=== PATIENT | female | born 1995 ===

== ENCOUNTER 2023-06-26 06:50 | Outpatient (CLI) | payer SELFPAY | END 2023-06-27 12:15 | disposition home or self-care (01) | LOC: PREOP 06:50 | PROVIDERS: ATTEND Obstetrics & Gynecology | DX: Z01.818 Encounter for other preprocedural examination (principal) ==

== ENCOUNTER 2023-06-27 10:44 | Inpatient (IN) | payer SELFPAY ==
[2023-06-27] VITALS (10 sets, daily range): BP systolic 96–124; BP diastolic 53–104
[~2023-06-27] VITALS: Ht 148 cm; Wt 63.2 kg
[2023-06-27 11:21] LABS: BILIRUBIN,URINE 1+ (NEGATIVE); CLARITY,URINE CLEAR; COLOR,URINE YELLOW; GLUCOSE, URINE (UA) NEGATIVE (NEGATIVE); KETONES,URINE 1+ (NEGATIVE); LEUKOCYTE ESTERASE ,URINE NEGATIVE (NEGATIVE); NITRITE,URINE NEGATIVE (NEGATIVE); PROTEIN,URINE TRACE (NEGATIVE); WBC,URINE 0-2 /HPF
[2023-06-27 11:22] LABS: AMORPHOUS SEDIMENT,UR RARE AMOR URATES /LPF; BACTERIA,URINE TRACE /HPF
[2023-06-27] MEDS ORDERED: ceFAZolin INJECTION 2,000 MG in NS (IVPB) 50 ML 50 ML IV ONE (12:00)
[2023-06-27] MEDS ORDERED: AZITHROMYCIN INJECTION 500 MG in NS (IVPB) 250 ML 250 ML IV ONE (12:00)
[2023-06-27 12:08] LABS: BASOPHILS % (AUTO) 0 % (0-10); EOSINOPHILS % (AUTO) 0 % (0-10); HEMATOCRIT 38 % (35-52); HEMOGLOBIN 12.7 g/dL (11.5-16.0); LYMPHOCYTES # (AUTO) 1.4 10^3/uL (1.0-4.0); LYMPHOCYTES % (AUTO) 15 % (12-44); MEAN CORPUSCULAR HEMOGLOBIN 28 pg (25-34); MEAN CORPUSCULAR HGB CONC 33 g/dL (32-36); MEAN CORPUSCULAR VOLUME 84 fL (80-99); MEAN PLATELET VOLUME 11.1 fL (9.0-12.2); MONOCYTES # (AUTO) 0.4 10^3/uL (0.0-1.0); MONOCYTES % (AUTO) 4 % (0-12); NEUTROPHILS # (AUTO) 7.6 10^3/uL (1.8-7.8); NEUTROPHILS % (AUTO) 80 % (42-75); PLATELET COUNT 359 10^3/uL (130-400); WHITE BLOOD COUNT 9.4 10^3/uL (4.3-11.0)
[2023-06-27] MEDS ORDERED: CATHETER FLUSH 10 ML SYR IV PRN (12:15)
[2023-06-27] MEDS ORDERED: BUTORPHANOL INJ 2 MG/ML VIAL IV ONE (12:15)
[2023-06-27] MEDS ORDERED: CITRIC ACID/SODIUM CITRATE ORAL SOLN 30 ML PO ONE (12:15)
[2023-06-27] MEDS ORDERED: FAMOTIDINE INJ 20MG/2ML VIAL IV ONE (12:15)
[2023-06-27] MEDS ORDERED: METOCLOPRAMIDE INJ 10 MG/2 ML IV ONE (12:15)
[2023-06-27] MEDS ORDERED: LACTATED RINGERS 1,000 ML 1,000 ML IV PRN (12:15)
[2023-06-27] MEDS ORDERED: METOCLOPRAMIDE INJ 10 MG/2 ML ONE (12:20)
[2023-06-27] MEDS ORDERED: BUTORPHANOL INJ 2 MG/ML VIAL ONE (12:21)
--- NOTE | 2023-06-27 12:34 | History & Physical-OB ---
OB - Chief Complaint & HPI Date/Time Date of Admission: Date of Admission: Jun 27, 2023 at 11:25 Date seen by a Provider: Jun 27, 2023 Time Seen by a Provider: 12:00 Chief Complaint/History OB-Reason for Admission/Chief: Rupture of Membranes Hx : 2 Hx Para: 1 Gestational Age in Weeks: 38 Gestational Age in Days: 4 Indication for : desires repeat Allergies and Home Medications Allergies Coded Allergies: No Known Drug Allergies (Unverified , 06/27/23) Patient Home Medication List Home Medication List Reviewed: Yes OB - History Hx of Present Care: Yes ( care in [facility]. Moved here in April and seen here last month.) Delivery History Hx Section: Yes Patient Past Medical History Neg Social History/Family History Alcohol Use: Denies Use Recreational Drug Use: No OB - Admission Exam Physical Exam HEENT: NCAT Heart: Rhythm Normal Lungs: Clear Abdomen: Gravid Extremities: Normal Reflexes: Normal Cervical Dilatation: 4cm Effacement: Other (80%) Station: -3 Membranes: Ruptured Amniotic Fluid: Clear Heart Rate: 120's Accelerations: Accelerations Present Decelerations: No Decelerations Short Term Variability: Present Skilled Nursing Variability: Average (6-25) Contractions on Admission: < 5 Minutes Apart Frequency of Contractions: Q2-4min Intensity: Moderate Labs Laboratory Tests Test 06/27/23 10:55 06/27/23 11:45 Range/Units Urine Color YELLOW Urine Clarity CLEAR Urine pH 7.0 5-9 Urine Specific [place] 1.025 H 1.016-1.022 Urine Protein TRACE H NEGATIVE Urine Glucose (UA) NEGATIVE NEGATIVE Urine Ketones 1+ H NEGATIVE Urine Nitrite NEGATIVE NEGATIVE Urine Bilirubin 1+ H NEGATIVE Urine Urobilinogen 1.0 < = 1.0 MG/DL Urine Leukocyte Esterase NEGATIVE NEGATIVE Urine RBC (Auto) 1+ H NEGATIVE Urine RBC 5-10 H /HPF Urine WBC 0-2 /HPF Urine Squamous Epithelial Cells 2-5 /HPF Urine Crystals PRESENT H /LPF Urine Amorphous Sediment RARE JENNIFER URATES H /LPF Urine Bacteria TRACE /HPF Urine Casts NONE /LPF Urine Mucus SMALL H /LPF Urine Culture Indicated NO White Blood Count 9.4 4.3-11.0 10^3/uL Red Blood Count 4.52 3.80-5.11 10^6/uL Hemoglobin 12.7 11.5-16.0 g/dL Hematocrit 38 35-52 % Mean Corpuscular Volume 84 80-99 fL Mean Corpuscular Hemoglobin 28 25-34 pg Mean Corpuscular Hemoglobin Concent 33 32-36 g/dL Red Cell Distribution Width 13.5 10.0-14.5 % Platelet Count 359 130-400 10^3/uL Mean Platelet Volume 11.1 9.0-12.2 fL Immature Granulocyte % (Auto) 1 % Neutrophils (%) (Auto) 80 H 42-75 % Lymphocytes (%) (Auto) 15 12-44 % Monocytes (%) (Auto) 4 0-12 % Eosinophils (%) (Auto) 0 0-10 % Basophils (%) (Auto) 0 0-10 % Neutrophils # (Auto) 7.6 1.8-7.8 10^3/uL Lymphocytes # (Auto) 1.4 1.0-4.0 10^3/uL Monocytes # (Auto) 0.4 0.0-1.0 10^3/uL Eosinophils # (Auto) 0.0 0.0-0.3 10^3/uL Basophils # (Auto) 0.0 0.0-0.1 10^3/uL Immature Granulocyte # (Auto) 0.1 0.0-0.1 10^3/uL Syphilis Total Antibody Negative Negative OB - Assessment/Plan/Diagnosis Assessment Assessment: active labor, section (Previous C/S requesting RLTCS.), rupture of membranes Admission Dx IUP at 38w4d presents with SROM and labor. H/O prior C/S in [facility] and requesting a RLTCS. Had PNC in [facility] and moved here in April. Has been seen here 3 times. Language barrier. Admission Status: Inpatient Order (span 2 midnights) Reason for Inpatient Admission: SROM. Labor. Prior C/S requesting RLTCS. Plan Plan: Section (R/B/A d/w pt and her family member, who assisted in translating.) MOISÉS MARRERO DO Jun 27, 2023 12:34
[2023-06-27] MEDS ORDERED: fentaNYL INJECTION 100 MCG/2 ML VIAL ONE (12:49)
[2023-06-27] MEDS ORDERED: KETOROLAC INJ 30 MG/ML VIAL ONE (12:49)
[2023-06-27] MEDS ORDERED: OXYTOCIN DRIP PRE-MIX 1,000 ML IV ONE (12:49)
[2023-06-27] MEDS ORDERED: ONDANSETRON INJECTION 4 MG/2 ML (SDV) ONE (12:49)
[2023-06-27] MEDS ORDERED: BUPIVACAINE 0.25% 10 ML VIAL ONE (13:46)
[2023-06-27] MEDS ORDERED: METHYLERGONOVINE INJ 0.2 MG/ML AMP ONE (13:47)
--- NOTE | 2023-06-27 14:33 | Cesarean Section Operative ---
Procedure Procedure Note Pre-operative Diagnosis: Anesli Susan Rehabilitation Consultant is a (27 /Para 2 / 1, Gestational Age (wks)38 with [SROM, labor, prior C/S requesting RLTCS] Post-operative Diagnosis: same [as above with delivery of viable female.] Procedure: [Repeat] low transverse section Physician: MOISÉS MARRERO DO Cutting Supervisor: [Criss Marcial and Cathi Quiroz] Estimated blood loss: [500] mL Disposition: [Stable at transfer to recovery room] Findings: Viable [female] , Apgars [8/9], normal appearing uterus, tubes, and ovaries. Procedure Details: The patient was seen in pre-op and the procedure was discussed with the patient in full, including the risks, benefits, and alternatives. All questions were answered. A registered nurse supervisor service was used. The patient was taken to the operating room and a time out was performed, verifying patient and procedure. After spinal anesthesia was placed by our anesthesia colleagues, the patient was placed in the dorsal supine with leftward tilt for uterine displacement.~ Her abdomen was then prepped and draped in the typical sterile fashion. A Pf annenstiel skin incision was made using a scalpel and carried down through the underlying fascia. The fascia was incised in the midline and tented up using Donna clamps. On both the inferior and superior fascia side the rectus muscle was dissected off bluntly and sharply using Plasencia scissors. The peritoneum was identified and entered bluntly in the midline. This was then stretched laterally using manual strength. After entering the abdominal cavity and confirming lack of intraperitoneal adhesions, a bladder flap was created with the use of Metzenbaum scissors.~ A scalpel was utilized to make a low transverse uterine incision. The incision was extended bluntly. The infant's head was grasped and brought to the level of the incision. Fundal pressure was applied and was delivered without difficulty. Mouth and nares were suctioned with bulb suction. After the umbilical cord was clamped and cut, the infant was handed off to the pediatric staff. A sample of cord blood was then obtained. The placenta was delivered intact via uterine massage. The uterus was exteriorized and cleared of all clots and debris. The uterine incision was mignon sed using 0 Vicryl in a running locked fashion. A second imbricated layer was placed using 0 Vicryl in a running fashion as well. The uterus was flexed forward and the posterior rectouterine space was inspected and cleared of all clots and debris. Again the hysterotomy site was examined and hemostasis was observed. The bilateral tubes and ovaries appeared normal. The uterus was placed back into the abdominal cavity and abdominal gutters were cleared of all clots and debris. A final check of the uterine incision showed it to be hemostatic. The rectus abdominal muscles were closed using 3-0 Vicryl in a running fashion. The fascia was closed with 2.0 Stratafix suture in a running fashion. The subcutaneous space was hemostatic. The subcutaneous space was closed with 3-0 Vicryl in a running fashion. The skin was then closed using 4-0 Monocryl in a running subcuticular fashion. The skin edges were reapproximated together and were hemostatic. Steristrips were applied. All sponge, lap and needle counts were correct at the end of the procedure per nursing. Vitals - Labs Vital Signs - I&O Vital Signs Date Time Temp Pulse Resp B/P (MAP) Pulse Ox O2 Delivery O2 Flow Rate FiO2 06/27/23 12:04 36.6 65 20 124/57 (79) 06/27/23 11:00 36.5 66 20 100 Room Air 06/27/23 11:00 36.5 66 20 119/69 100 Room Air Labs Laboratory Tests 06/27/23 10:55: Urine Color YELLOW, Urine Clarity CLEAR, Urine pH 7.0, Urine Specific [place] 1.025H, Urine Protein TRACEH, Urine Glucose (UA) NEGATIVE, Urine Ketones 1+H, Urine Nitrite NEGATIVE, Urine Bilirubin 1+H, Urine Urobilinogen 1.0, Urine Leukocyte Esterase NEGATIVE, Urine RBC (Auto) 1+H, Urine RBC 5-10H, Urine WBC 0- 2, Urine Squamous Epithelial Cells 2-5, Urine Crystals PRESENTH, Urine Amorphous Sediment RARE JENNIFER URATESH, Urine Bacteria TRACE, Urine Casts NONE, Urine Mucus SMALLH, Urine Culture Indicated NO 06/27/23 11:45: White Blood Count 9.4, Red Blood Count 4.52, Hemoglobin 12.7, Hematocrit 38, Mean Corpuscular Volume 84, Mean Corpuscular Hemoglobin 28, Mean Corpuscular Hemoglobin Concent 33, Red Cell Distribution Width 13.5, Platelet Count 359, Mean Platelet Volume 11.1, Immature Granulocyte % (Auto) 1, Neutrophils (%) (Auto) 80H, Lymphocytes (%) (Auto) 15, Monocytes (%) (Auto) 4, Eosinophils (%) (Auto) 0, Basophils (%) (Auto) 0, Neutrophils # (Auto) 7.6, Lymphocytes # (Auto) 1.4, Monocytes # (Auto) 0.4, Eosinophils # (Auto) 0.0, Basophils # (Auto) 0.0, Immature Granulocyte # (Auto) 0.1, Syphilis Total Antibody Negative MOISÉS MARRERO DO Jun 27, 2023 14:33
[2023-06-27] MEDS ORDERED: Tetanus/Diphtheria/Pertussis (Acell) ADULT Vaccine 0.5 ML IM SCH (14:45)
[2023-06-27] MEDS ORDERED: MEASLES, MUMPS, RUBELLA VACCINE (MMR) SC SCH (14:45)
[2023-06-27] MEDS ORDERED: NALOXONE 0.4 MG/ML 1 ML VIAL IV PRN (14:45)
[2023-06-27] MEDS ORDERED: IBUPROFEN 800 MG TABLET PO SCH (15:00)
[2023-06-27] MEDS ORDERED: TRANEXAMIC ACID 100 MG/ML 10 ML INJECTION IV ONE (17:58)
[2023-06-27] MEDS: DOCUSATE SODIUM 100 MG CAPSULE PO SCH (21:41)
[2023-06-27] MEDS: oxyCODONE/ACETAMINOPHEN 5/325MG TABLET PO PRN (21:42)
[2023-06-27] MEDS ORDERED: CATHETER FLUSH 10 ML SYR IV SCH (22:00)
[2023-06-28] MEDS: IBUPROFEN 800 MG TABLET PO SCH ×3 (01:47→17:48)
[2023-06-28 02:04] VITALS: BP 95/61
--- NOTE | 2023-06-28 06:52 | Anesthesia-Regional Post-Op ---
Regional Patient Condition Mental Status: Alert, Oriented x3 Circulation: Same as Pre-Op Headache: Absent Sensation: Full Recovery Motor Block: Absent Post Op Complications Complications None Follow Up Care/Instructions Patient Instructions None needed. Anesthesia/Patient Condition Patient is doing well, no complaints, stable vital signs, no apparent adverse anesthesia problems. No complications reported per nursing. DIETER DUFFY CRNA Jun 28, 2023 06:52
[2023-06-28 07:25] LABS: BASOPHILS % (AUTO) 1 % (0-10); EOSINOPHILS % (AUTO) 0 % (0-10); HEMATOCRIT 27 % (35-52); HEMOGLOBIN 8.6 g/dL (11.5-16.0); LYMPHOCYTES # (AUTO) 2.1 10^3/uL (1.0-4.0); LYMPHOCYTES % (AUTO) 25 % (12-44); MEAN CORPUSCULAR HEMOGLOBIN 28 pg (25-34); MEAN CORPUSCULAR HGB CONC 32 g/dL (32-36); MEAN CORPUSCULAR VOLUME 86 fL (80-99); MEAN PLATELET VOLUME 10.9 fL (9.0-12.2); MONOCYTES # (AUTO) 0.5 10^3/uL (0.0-1.0); MONOCYTES % (AUTO) 6 % (0-12); NEUTROPHILS # (AUTO) 5.8 10^3/uL (1.8-7.8); NEUTROPHILS % (AUTO) 68 % (42-75); PLATELET COUNT 244 10^3/uL (130-400); WHITE BLOOD COUNT 8.5 10^3/uL (4.3-11.0)
[2023-06-28 08:05] VITALS: BP 98/62
--- NOTE | 2023-06-28 08:59 | Postpartum Progress Note ---
Post Op Post-operative Day #[1] Subjective: Patient is without complaints. Ambulating, voiding after reis removed. Tolerating a regular diet without nausea or vomiting. Normal lochia. Pain is well controlled with oral pain medications. [Bottle] feeding. [] Objective: Physical Exam: General - Alert and oriented, no apparent distress Abdomen - Soft, appropriately tender to palpation, non-distended, fundus firm at umbilicus Incision - clean, dry and intact; no erythema or induration, no drainage Extremities - no edema, negative Tony's bilaterally Assessment: [] post-operative day # [1], status post [RLTCS]. Recovering well, hemodynamically stable Postop anemia - asymptomatic. Plan: Routine post-operative care. Encourage ambulation. VTE prophylaxis: SCDs. Plan for discharge [tomorrow] Vitals - Labs Vital Signs - I&O Vital Signs Date Time Temp Pulse Resp B/P (MAP) Pulse Ox O2 Delivery O2 Flow Rate FiO2 06/28/23 08:05 36.5 65 18 98/62 (74) 99 Room Air 06/28/23 02:04 36.5 71 18 95/61 (72) 99 Room Air 06/27/23 22:01 36.7 75 20 96/63 (74) 98 Room Air 06/27/23 21:26 Room Air 06/27/23 18:20 37.0 83 16 114/66 (82) Room Air 06/27/23 16:20 36.5 62 16 119/58 (78) 100 Room Air 06/27/23 15:50 36.5 68 16 112/53 (72) 100 Room Air 06/27/23 15:24 Room Air 06/27/23 15:24 06/27/23 15:15 36.1 20 97/60 (72) 98 Room Air 06/27/23 15:15 Room Air 06/27/23 15:00 35.9 20 100/65 (77) 99 Room Air 06/27/23 15:00 Room Air 06/27/23 14:45 35.6 20 115/104 (108) 99 Room Air 06/27/23 14:45 Room Air 06/27/23 14:30 Room Air 06/27/23 14:30 16 99 Room Air 06/27/23 14:25 Room Air 06/27/23 14:25 36.4 16 99/53 (68) 99 Room Air 06/27/23 12:04 36.6 65 20 124/57 (79) 06/27/23 11:00 36.5 66 20 100 Room Air 06/27/23 11:00 36.5 66 20 119/69 100 Room Air I & O 06/28/23 07:00 Intake Total 1500 ml Output Total 500 ml Balance 1000 ml Labs Laboratory Tests 06/27/23 10:55: Urine Color YELLOW, Urine Clarity CLEAR, Urine pH 7.0, Urine Specific [place] 1.025H, Urine Protein TRACEH, Urine Glucose (UA) NEGATIVE, Urine Ketones 1+H, Urine Nitrite NEGATIVE, Urine Bilirubin 1+H, Urine Urobilinogen 1.0, Urine L eukocyte Esterase NEGATIVE, Urine RBC (Auto) 1+H, Urine RBC 5-10H, Urine WBC 0- 2, Urine Squamous Epithelial Cells 2-5, Urine Crystals PRESENTH, Urine Amorphous Sediment RARE JENNIFER URATESH, Urine Bacteria TRACE, Urine Casts NONE, Urine Mucus SMALLH, Urine Culture Indicated NO 06/27/23 11:45: White Blood Count 9.4, Red Blood Count 4.52, Hemoglobin 12.7, Hematocrit 38, Mean Corpuscular Volume 84, Mean Corpuscular Hemoglobin 28, Mean Corpuscular Hemoglobin Concent 33, Red Cell Distribution Width 13.5, Platelet Count 359, Mean Platelet Volume 11.1, Immature Granulocyte % (Auto) 1, Neutrophils (%) (Auto) 80H, Lymphocytes (%) (Auto) 15, Monocytes (%) (Auto) 4, Eosinophils (%) (Auto) 0, Basophils (%) (Auto) 0, Neutrophils # (Auto) 7.6, Lymphocytes # (Auto) 1.4, Monocytes # (Auto) 0.4, Eosinophils # (Auto) 0.0, Basophils # (Auto) 0.0, Immature Granulocyte # (Auto) 0.1, Syphilis Total Antibody Negative 06/28/23 06:30: White Blood Count 8.5, Red Blood Count 3.10L, Hemoglobin 8.6#L, Hematocrit 27L, Mean Corpuscular Volume 86, Mean Corpuscular Hemoglobin 28, Mean Corpuscular Hemoglobin Concent 32, Red Cell Distribution Width 13.7, Platelet Count 244, Mean Platelet Volume 10.9, Immature Granulocyte % (Auto) 1, Neutrophils (%) (Auto) 68, Lymphocytes (%) (Auto) 25, Monocytes (%) (Auto) 6, Eosinophils (%) (Auto) 0, Basophils (%) (Auto) 1, Neutrophils # (Auto) 5.8, Lymphocytes # (Auto) 2.1, Monocytes # (Auto) 0.5, Eosinophils # (Auto) 0.0, Basophils # (Auto) 0.0, Immature Granulocyte # (Auto) 0.1, Creatinine 0.53L MOISÉS MARRERO DO Jun 28, 2023 08:59
[2023-06-28] MEDS: oxyCODONE/ACETAMINOPHEN 5/325MG TABLET PO PRN ×2 (10:17→20:56)
[2023-06-28] MEDS: DOCUSATE SODIUM 100 MG CAPSULE PO SCH ×2 (10:18→20:56)
[2023-06-28 17:45] VITALS: BP 105/55
[2023-06-29 01:50] VITALS: BP 93/53
[2023-06-29] MEDS: IBUPROFEN 800 MG TABLET PO SCH ×2 (01:50→10:19)
[2023-06-29 08:03] VITALS: BP 97/5
[2023-06-29] MEDS: DOCUSATE SODIUM 100 MG CAPSULE PO SCH (08:03)
--- NOTE | 2023-06-29 09:37 | Postpartum Progress Note ---
Post Op Post-operative Day #[2] Subjective: Patient is without complaints. Ambulating, voiding after reis removed. Tolerating a regular diet without nausea or vomiting. Normal lochia. Pain is well controlled with oral pain medications. Passing flatus. [Bottle] feeding. [] Objective: [] Physical Exam: General - Alert and oriented, no apparent distress Abdomen - Soft, appropriately tender to palpation, non-distended, fundus firm at umbilicus Incision - clean, dry and intact; no erythema or induration, no drainage Extremities - no edema, negative Tony's bilaterally Assessment: [] post-operative day # [2], status post [RLTCS]. Recovering well, hemodynamically stable Plan: Plan for discharge today. [facility] Vitals - Labs Vital Signs - I&O Vital Signs Date Time Temp Pulse Resp B/P (MAP) Pulse Ox O2 Delivery O2 Flow Rate FiO2 06/29/23 08:03 36.7 66 18 97/5 (35) 98 Room Air 06/29/23 01:50 36.7 71 18 93/53 (66) 99 Room Air 06/28/23 17:45 36.7 80 18 105/55 (72) 99 Room Air MOISÉS MARRERO DO Jun 29, 2023 09:37
[2023-06-29] MEDS ORDERED: OXYC1TAB87 PO (09:53)
[2023-06-29] MEDS: oxyCODONE/ACETAMINOPHEN 5/325MG TABLET PO PRN (15:01)
== END 2023-06-29 15:15 | disposition home or self-care (01) | DRG 788 ==
LOC: WSo 10:44 → LDRP 10:44 → WSo 11:24 → LDRP 11:25
PROVIDERS: ADMIT Family Medicine; ATTEND Family Medicine
PROC: 10D00Z1 Extraction of Products of Conception, Low, Open Approach (ICD-10-PCS; principal; 2023-06-27 13:15)
DX: O34.211 Maternal care for low transverse scar from previous cesarean delivery (principal); Z3A.38 38 weeks gestation of pregnancy; Z37.0 Single live birth; O90.81 Anemia of the puerperium
CPT/HCPCS: 36415; 81000; 82565; 85025; 86780; 86850; 86900; 86901; 94664; 99213